=== PATIENT | male | born 1940 | race African-American/Black ===

== ENCOUNTER 2017-10-26 13:55 | Outpatient (RCR) | payer MEDICARE, OTHER | END 2017-11-05 | disposition home or self-care (01) | LOC: WCC 13:55 | DX: L59.8 Other specified disorders of the skin and subcutaneous tissue related to radiation (principal); K62.7 Radiation proctitis; K92.1 Melena; Z85.46 Personal history of malignant neoplasm of prostate; Z96.649 Presence of unspecified artificial hip joint; Z95.5 Presence of coronary angioplasty implant and graft; I12.9 Hypertensive chronic kidney disease with stage 1 through stage 4 chronic kidney disease, or unspecified chronic kidney disease; N18.9 Chronic kidney disease, unspecified; J44.9 Chronic obstructive pulmonary disease, unspecified; E03.9 Hypothyroidism, unspecified; I25.2 Old myocardial infarction | CPT/HCPCS: G0277; G0463 ==

== ENCOUNTER → 2017-10-26 | Outpatient (CLI) | payer MEDICARE, OTHER ==
--- NOTE | 2017-10-26 15:40 | Diagnostic Imaging Report ---
Indication: Cough Comparison: None 2 views of the chest obtained. No definite infiltrate or pulmonary vascular congestion identified. There is a stent in the proximal part of the abdominal aorta. The lungs appear slightly hyperexpanded. The heart is enlarged. The aorta is mildly enlarged consistent with atherosclerotic vascular disease. The bones are osteopenic. Impression: COPD
== END | disposition home or self-care (01) ==
LOC: RAD 15:06
DX: R05 Cough (principal); J44.9 Chronic obstructive pulmonary disease, unspecified; M85.80 Other specified disorders of bone density and structure, unspecified site; I51.7 Cardiomegaly
CPT/HCPCS: 71046

== ENCOUNTER 2017-11-09 09:44 | Outpatient (RCR) | payer MEDICARE, OTHER | END 2017-12-05 | disposition home or self-care (01) | LOC: WCC 09:44 | DX: L59.8 Other specified disorders of the skin and subcutaneous tissue related to radiation (principal); Z95.5 Presence of coronary angioplasty implant and graft; Z96.649 Presence of unspecified artificial hip joint; I13.10 Hypertensive heart and chronic kidney disease without heart failure, with stage 1 through stage 4 chronic kidney disease, or unspecified chronic kidney disease; N18.9 Chronic kidney disease, unspecified; J44.9 Chronic obstructive pulmonary disease, unspecified; Z85.46 Personal history of malignant neoplasm of prostate; E03.9 Hypothyroidism, unspecified; I25.2 Old myocardial infarction; Z79.82 Long term (current) use of aspirin | CPT/HCPCS: G0277 ×19 ==

== ENCOUNTER 2017-12-07 09:03 | Outpatient (RCR) | payer MEDICARE, OTHER | END 2018-01-05 | disposition home or self-care (01) | LOC: WCC 09:03 | DX: L59.8 Other specified disorders of the skin and subcutaneous tissue related to radiation (principal); Z96.649 Presence of unspecified artificial hip joint; Z85.46 Personal history of malignant neoplasm of prostate; J44.9 Chronic obstructive pulmonary disease, unspecified; I13.10 Hypertensive heart and chronic kidney disease without heart failure, with stage 1 through stage 4 chronic kidney disease, or unspecified chronic kidney disease; N18.9 Chronic kidney disease, unspecified; I25.2 Old myocardial infarction; Z79.82 Long term (current) use of aspirin; Z79.02 Long term (current) use of antithrombotics/antiplatelets | CPT/HCPCS: G0277 ×15 ==

== ENCOUNTER 2018-01-06 10:30 | Outpatient (RCR) | payer MEDICARE, OTHER | END 2018-02-05 | disposition home or self-care (01) | LOC: WCC 10:30 | DX: L59.8 Other specified disorders of the skin and subcutaneous tissue related to radiation (principal); Z96.649 Presence of unspecified artificial hip joint; Z95.5 Presence of coronary angioplasty implant and graft; I13.10 Hypertensive heart and chronic kidney disease without heart failure, with stage 1 through stage 4 chronic kidney disease, or unspecified chronic kidney disease; N18.9 Chronic kidney disease, unspecified; J44.9 Chronic obstructive pulmonary disease, unspecified; E03.9 Hypothyroidism, unspecified; I25.2 Old myocardial infarction; Z85.46 Personal history of malignant neoplasm of prostate; Z79.82 Long term (current) use of aspirin; Z79.02 Long term (current) use of antithrombotics/antiplatelets | CPT/HCPCS: G0277 ×19 ==